=== PATIENT | male | born 1980 | race Caucasian/White ===

== ENCOUNTER 2016-02-27 18:53 | Emergency (ER) | payer OTHER ==
[~2016-02-27] VITALS: Ht 193 cm; Wt 176.5 kg
[~2016-02-27 18:53] MED LIST: PREDNISONE10 M1 PO; TRAMADOL HCL50 MG PO; ZYRTEC10 M2 PO
[2016-02-27] MEDS ORDERED: TRAMADOL HCL50 MG PO (20:00)
[2016-02-27] MEDS ORDERED: AMOXICILLIN875 MG PO (20:00)
[2016-02-27] MEDS ORDERED: MOTRIN600 MG PO (20:00)
[2016-02-27 20:07] VITALS: BP 177/97
== END 2016-02-27 20:07 | disposition home or self-care (01) ==
LOC: EME 18:53
DX: K08.89 Other specified disorders of teeth and supporting structures (principal); I10 Essential (primary) hypertension; E66.9 Obesity, unspecified; R51 Headache; R68.84 Jaw pain; F17.200 Nicotine dependence, unspecified, uncomplicated
CPT/HCPCS: 99281; 99284

== ENCOUNTER 2016-12-15 13:32 | Emergency (ER) | payer OTHER ==
[~2016-12-15] VITALS: Ht 190.5 cm; Wt 180.3 kg
[~2016-12-15 13:32] MED LIST changes: +AMOXICILLIN875 MG PO; +MOTRIN600 MG PO
[2016-12-15] MEDS ORDERED: KEFLEX500 MG PO (14:40)
[2016-12-15 14:48] VITALS: BP 156/98
== END 2016-12-15 14:52 | disposition home or self-care (01) ==
LOC: EME 13:32
DX: L02.212 Cutaneous abscess of back [any part, except buttock and flank] (principal); L03.312 Cellulitis of back [any part except buttock and flank]; M54.5 Low back pain; R20.0 Anesthesia of skin; Z87.891 Personal history of nicotine dependence
CPT/HCPCS: 99281; 99283